=== PATIENT | male | born 1965 | race Caucasian/White ===

== ENCOUNTER → 2020-11-10 | Day surgery (SDC) | payer MEDICARE, OTHER ==
[2020-11-09 08:52] VITALS: BMI 25.2
[~2020-11-10] MED LIST: ALBUTEROL NEBULIZED 2.5 MG/3 ML INHALATION PRN; ALPRAZolam 0.25 MG TAB PO PRN; ALPRAZolam 0.5 MG TAB PO PRN; ASPIRIN 325 MG TAB PO SCH; ASPIRIN 325 MG TAB PO STA; ATORVASTATIN 10 MG TAB PO SCH; ATORVASTATIN 80 MG TAB PO STA; EZETIMIBE 10 MG TAB PO SCH; HEPARIN SODIUM 1,000 UN/ML (10ML VL) IV ONE; HEPARIN SODIUM 1,000 UN/ML (10ML VL) ONE; IOPAMIDOL-370 125ML BTL INJ ONE; LIDOCAINE 1% INJ 10MG/ML (20 ML MDV) ONE; LIDOCAINE 1% INJ 10MG/ML (20 ML MDV) SQ ONE; MIDAZOLAM 2 MG/2 ML VIAL IV ONE; NITROGLYCERIN 1000MCG/10ML SYRINGE INTRACORON ONE; NITROGLYCERIN SL TABS 0.4 MG TAB SUBLINGUAL PRN; RX INFO: IV CONTRAST WAS GIVEN 1 EACH MISC MISCELLANE PRN; SODIUM CHLORIDE 0.9% 1,000 ML IV ONE; SODIUM CHLORIDE 0.9% 1,000 ML IV SCH; SODIUM CHLORIDE 0.9% 1,000 ML in EMPTY BAG 1 BAG IV ONE; VERAPAMIL 2.5 MG/ML 2 ML AMP ONE; VERAPAMIL SYRINGE (5 MG/10 ML) INTRAARTER ONE; amLODIPine 10 MG TAB PO SCH; fentaNYL (PF) 50 MCG/ML 2 ML AMP IV ONE; fentaNYL (PF) 50 MCG/ML 2 ML AMP ONE; hydroCHLOROthiazide 12.5 MG CAP PO SCH; lisinopriL 10 MG TAB PO SCH
[2020-11-10 06:33] VITALS: TEMP 98.2
[2020-11-10 07:14] LABS: Basophils # (A) 0.1 k/uL (0-0.2); Basophils % (A) 1 %; Eosinophils # (A) 0.5 k/uL (0-0.7); Eosinophils % (A) 5 %; HCT 44.8 % (39.0-53.0); HGB 15.6 gm/dL (13.0-17.5); Lymphocytes # (A) 2.3 k/uL (1.0-4.8); Lymphocytes % (A) 27 %; MCH 34.5 pg (25.0-35.0); MCHC 34.9 g/dL (31.0-37.0); Mean Platelet Volume 6.8; Monocytes # (A) 0.6 k/uL (0-1.0); Monocytes % (A) 7 %; Neutrophils # (A) 4.9 k/uL (1.3-7.7); Neutrophils % (A) 57 %; Platelet Count 232 k/uL (150-450); RBC 4.53 m/uL (4.30-5.90); WBC 8.5 k/uL (3.8-10.6)
[2020-11-10 07:17] LABS: African American GFR (CKD) >90 (>60 ml/min/1.73 sqM); Anion Gap 11 mmol/L; Blood Urea Nitrogen 10 mg/dL (9-20); Calcium 9.6 mg/dL (8.4-10.2); Carbon Dioxide 27 mmol/L (22-30); Chloride 102 mmol/L (98-107); Glucose 89 mg/dL (74-99); Non-African American GFR(CKD) >90 (>60 ml/min/1.73 sqM); Potassium 4.1 mmol/L (3.5-5.1); Sodium 140 mmol/L (137-145)
--- NOTE | 2020-11-10 09:03 | CC ---
CARDIAC CATHETERIZATION REPORT Mr. Li is a 54-year-old male with a known history of hypertension, hyperlipidemia, chronic tobacco use, who has been complaining of dyspnea on exertion, underwent myocardial perfusion imaging that revealed evidence of prior myocardial infarction. In view of those findings and his prior history, recommendation made regarding cardiac catheterization. The procedure as well as the risks and the complications were discussed with the patient who is in full understanding and agreement. PROCEDURE: Patient was brought to the manager cath lab in a fasting semisedated state, after receiving fentanyl and Benadryl and achieving moderate conscious sedated state, using Xylocaine anesthesia and Seldinger technique, a 6-Swazi sheath was introduced in the right radial artery. Selective right and left coronary angiography performed using 5- Swazi 3.5 bend right and left Anna catheter. Multiple views of the coronary artery including hemiaxial views were obtained. Following that the 5-Swazi right Anna catheter was introduced in the left ventricle and pressures were calculated. Following that, catheters was removed and 6-Swazi FL 3.5 guiding catheter introduced in the system. After cannulating the left main, a Doppler flow wire X was introduced, positioned distal LAD and IFR was measured. Following that, catheter and sheath were removed. Hemostasis was obtained with deployment of a TR band. There was no immediate complication. Patient is returned to his room in stable condition. Of note, the patient received a total of 5000 units of intravenous heparin as well as intra- arterial verapamil. There was no significant complication. FINDING: FLUOROSCOPY: There was severe calcification involving all the coronary arteries. SELECTIVE CORONARY ANGIOGRAM: LEFT MAIN: This is a large-sized vessel, bifurcating into left circumflex, left anterior descending artery, left main coronary artery has no evidence of high- grade stenosis. LEFT ANTERIOR DESCENDING ARTERY: This is a large-sized vessel reaching to the apex with a wraparound the apex segment. Tapers down in distal third, gives rise to a large diagonal branch proximally that has no evidence of high-grade stenosis. The first septal engraving press operator has a branching segment that is totally occluded with ipsilateral collaterals. The LAD in mid segment has an eccentric 50 to 60% plaque. The rest of the vessel has no high-grade stenosis. LEFT CIRCUMFLEX: This is a nondominant vessel giving rise to 3 obtuse marginal branch. The second obtuse marginal branch is the largest and has a 30% to 40% plaque proximally. The rest of the vessel has no high-grade stenosis. RIGHT CORONARY ARTERY: This is a large-sized vessel bifurcating into PDA and posterolateral segment and branches, calcified. The mid right coronary artery has diffuse intimal disease of 30-40 percent without any evidence of high-grade stenosis. LEFT VENTRICULOGRAM: Not performed. HEMODYNAMICS: There was no gradient across the aortic valve. The left ventricular end-diastolic pressure was 25-30 mmHg. IFR of the mid LAD was 0.99 consistent with non hemodynamically significant lesion. CONCLUSION: 1. Calcified coronary arteries. 2. 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 3. Moderate to significant mid LAD lesion with normal IFR consistent with non hemodynamically significant lesion. 4. Mild disease in the left circumflex and the right coronary artery. 5. Elevated left ventricular end-diastolic pressure. RECOMMENDATION: In view of findings and anatomy, I recommend continued medical therapy with aggressive coronary risk modifications that have been initiated. Those findings and recommendations were discussed with the patient and his family over the phone and they are in full understanding and agreement. Duration of sedation is 33 minutes. MMODL / IJN: [id number] / MTDD
--- NOTE | 2020-11-10 09:08 | LTR ---
DATE OF SERVICE: 11/10/[address] Bo: I had the pleasure of performing cardiac catheterization on Mr. Li at [facility] on November 10 and a full copy of procedure note be forwarded to you. In brief, he was found to have calcified coronary arteries with chronically occluded mid first septal perforators. He had a borderline lesion in the mid LAD that had normal IFR measurement and based on those findings, I will maximize his medical therapy and continue on the present regimen and depending on his progress, further recommendations will be made. Thank you again for allowing me to participate in his care. Please feel free to call for any questions. Sincerely, ANNIKA / TANYAN: [id number] /
[2020-11-10 09:46] VITALS: RESP 16
[2020-11-10 11:12] VITALS: BP 100/62
[2020-11-10 11:23] VITALS: PULSE 55
== END | disposition home or self-care (01) ==
LOC: CATHCVL 06:04
PROVIDERS: ATTEND Internal Medicine Interventional Cardiology
DX: I25.10 Atherosclerotic heart disease of native coronary artery without angina pectoris (principal); I25.84 Coronary atherosclerosis due to calcified coronary lesion; I10 Essential (primary) hypertension; E78.5 Hyperlipidemia, unspecified; I73.9 Peripheral vascular disease, unspecified; F17.200 Nicotine dependence, unspecified, uncomplicated; Z79.82 Long term (current) use of aspirin
CPT/HCPCS: 93571; 93458; 80048; 85025; C1887; C1894; C1769 ×2; J2250; J2001; J3010; J1644; Q9967